=== PATIENT | female | born 1930 | race Native Hawaiian/Other Pacific Islander ===

== ENCOUNTER 2017-01-30 08:16 | Outpatient (CLI) | payer OTHER | END 2017-01-30 19:23 | disposition home or self-care (01) | LOC: LABW 08:16 | DX: R82.99 Other abnormal findings in urine (principal) | CPT/HCPCS: 87086; 87088 ==

== ENCOUNTER 2018-10-17 10:07 | Outpatient (CLI) | payer OTHER ==
[2018-10-17 10:48] LABS: PLATELET COUNT 120 K/uL (152-353)
== END 2018-10-17 22:09 | disposition home or self-care (01) ==
LOC: LABW 10:07
PROVIDERS: Specialist
DX: N18.3 Chronic kidney disease, stage 3 (moderate) (principal); M32.8 Other forms of systemic lupus erythematosus; I10 Essential (primary) hypertension
CPT/HCPCS: 36415; 80069; 81000; 85027

== ENCOUNTER 2018-11-07 08:47 | Outpatient (CLI) | payer OTHER | END 2018-11-07 22:48 | disposition home or self-care (01) | LOC: US 08:47 | DX: N18.3 Chronic kidney disease, stage 3 (moderate) (principal); I10 Essential (primary) hypertension ==

== ENCOUNTER 2019-01-09 09:52 | Outpatient (CLI) | payer OTHER | END 2019-01-09 19:45 | disposition home or self-care (01) | LOC: LABW 09:52 | DX: M05.79 Rheumatoid arthritis with rheumatoid factor of multiple sites without organ or systems involvement (principal); M32.8 Other forms of systemic lupus erythematosus; Z79.899 Other long term (current) drug therapy | CPT/HCPCS: 36415; 86480 ==

== ENCOUNTER 2019-03-07 14:50 | Inpatient (IN) | payer OTHER ==
[~2019-03-07] VITALS: Ht 157.5 cm; Wt 80.8 kg
[2019-03-07 18:00] VITALS: BP 138/47; TEMP 97.8
[2019-03-07] MEDS ORDERED: TYLENOL325 MG PO (18:06)
[2019-03-07] MEDS ORDERED: HYDROCODONE BIT1 TA1 PO (18:08)
[2019-03-07] MEDS ORDERED: REMERON SOLTAB15 MG PO (18:14)
[2019-03-07 18:15] VITALS: BP 138/47; TEMP 97.8; Ht 157.5 cm; Wt 80.8 kg
[2019-03-07] MEDS ORDERED: VENL37.511 PO (18:15)
[2019-03-07] MEDS ORDERED: CLARITIN10 MG PO (18:15)
[2019-03-07] MEDS ORDERED: CETI10TA PO (18:20)
[2019-03-07] MEDS ORDERED: HYDR25TA57 PO (18:23)
[2019-03-07] MEDS ORDERED: AMLODIPINE BESYLATE PO (18:28)
[2019-03-07] MEDS ORDERED: METO25TA2 PO (18:28)
[2019-03-07] MEDS ORDERED: KLOR-CON M2020 MEQ PO (18:31)
[2019-03-07] MEDS ORDERED: LEVO0.0723 PO (18:32)
[2019-03-07] MEDS ORDERED: CYCLOBENZAPRINE5 MG PO (18:32)
[2019-03-08 08:00] VITALS: BP 163/67; TEMP 97.8
[2019-03-08 20:00] VITALS: BP 195/82; TEMP 97.9
[2019-03-09 08:00] VITALS: BP 156/69; TEMP 97.8
[2019-03-09 20:00] VITALS: BP 136/52; TEMP 97.9
[2019-03-10 08:00] VITALS: BP 133/59; TEMP 97.9
[2019-03-10 20:00] VITALS: BP 146/71; TEMP 97.9
[2019-03-11 08:00] VITALS: BP 146/71; TEMP 97.9
[2019-03-11 20:00] VITALS: BP 137/69; TEMP 97.7
[2019-03-12 08:00] VITALS: BP 166/77; TEMP 98.1
[2019-03-12 20:00] VITALS: BP 174/72; TEMP 98.1
[2019-03-13 08:00] VITALS: BP 177/84; TEMP 98
[2019-03-13 20:00] VITALS: BP 139/67; TEMP 98.4
[2019-03-14 08:00] VITALS: BP 137/62; TEMP 98
[2019-03-14 20:00] VITALS: BP 155/59; TEMP 98.1
[2019-03-15 08:07] VITALS: BP 116/62; TEMP 98.2
[2019-03-15 20:00] VITALS: BP 154/56; TEMP 98.2
[2019-03-16 08:07] VITALS: BP 121/60; TEMP 98
[2019-03-16 20:00] VITALS: BP 146/66; TEMP 98.2
[2019-03-17 08:00] VITALS: BP 154/76; TEMP 97.9
[2019-03-17 20:00] VITALS: BP 155/68; TEMP 98.2
[2019-03-18 08:00] VITALS: BP 151/65; TEMP 98
[2019-03-18 20:00] VITALS: BP 141/65; TEMP 98.2
[2019-03-19 08:00] VITALS: BP 128/56; TEMP 98.2
[2019-03-19 20:00] VITALS: BP 136/60; TEMP 98.4
[2019-03-20 08:00] VITALS: BP 167/70; TEMP 97.9
[2019-03-20 20:00] VITALS: BP 159/70; TEMP 98.1
[2019-03-21 08:00] VITALS: BP 141/57; TEMP 98.1
[2019-03-21 20:05] VITALS: BP 144/62; TEMP 98.4
[2019-03-22 08:00] VITALS: BP 145/65; TEMP 98
[2019-03-22 20:00] VITALS: BP 160/69; TEMP 98.5
[2019-03-23 08:00] VITALS: BP 160/66; TEMP 97.9
[2019-03-23 20:00] VITALS: BP 150/63; TEMP 97.9
[2019-03-24 08:00] VITALS: BP 123/53; TEMP 98
[2019-03-24 20:00] VITALS: BP 137/55; TEMP 98.6
[2019-03-25 08:00] VITALS: BP 147/65; TEMP 97.9
[2019-03-25 20:00] VITALS: BP 154/73; TEMP 98.2
[2019-03-26 08:00] VITALS: BP 143/61; TEMP 97.9
== END 2019-03-26 13:52 | disposition home or self-care (01) | DRG 948 ==
LOC: MED/SURG 14:50
PROVIDERS: ADMIT Internal Medicine
DX: R53.1 Weakness (principal); S32.021D Stable burst fracture of second lumbar vertebra, subsequent encounter for fracture with routine healing; W19.XXXA Unspecified fall, initial encounter; Z91.81 History of falling; Y93.89 Activity, other specified; Y92.018 Other place in single-family (private) house as the place of occurrence of the external cause; F32.9 Major depressive disorder, single episode, unspecified; I10 Essential (primary) hypertension; L93.2 Other local lupus erythematosus; M06.80 Other specified rheumatoid arthritis, unspecified site; M48.00 Spinal stenosis, site unspecified; R26.81 Unsteadiness on feet
CPT/HCPCS: 94760

== ENCOUNTER 2019-10-26 17:42 | Outpatient (CLI) | payer OTHER ==
[~2019-10-26 17:42] MED LIST: AMLODIPINE BESYLATE PO; CETI10TA PO; CLARITIN10 MG PO; CYCLOBENZAPRINE5 MG PO; HYDR25TA57 PO; HYDROCODONE BIT1 TA1 PO; KLOR-CON M2020 MEQ PO; LEVO0.0723 PO; METO25TA2 PO; REMERON SOLTAB15 MG PO; TYLENOL325 MG PO; VENL37.511 PO
== END 2019-10-26 17:55 | disposition short-term general hospital (02) ==
LOC: AMB 17:42
DX: R55 Syncope and collapse (principal); R11.0 Nausea; S81.811A Laceration without foreign body, right lower leg, initial encounter; S00.81XA Abrasion of other part of head, initial encounter; W18.39XA Other fall on same level, initial encounter; Y92.89 Other specified places as the place of occurrence of the external cause
CPT/HCPCS: A0425; A0427

== ENCOUNTER 2019-10-26 17:58 | Emergency (ER) | payer OTHER ==
[~2019-10-26] VITALS: Ht 157.5 cm; Wt 80.7 kg
[2019-10-26 17:58] VITALS: TEMP 98.1
[2019-10-26 20:13] VITALS: BP 152/80
== END 2019-10-26 20:14 | disposition home or self-care (01) ==
LOC: ED 17:58
DX: S09.8XXA Other specified injuries of head, initial encounter (principal); W18.39XA Other fall on same level, initial encounter; Y92.098 Other place in other non-institutional residence as the place of occurrence of the external cause
CPT/HCPCS: 99283

== ENCOUNTER 2020-08-10 07:29 | Outpatient (CLI) | payer OTHER ==
[2020-08-10 08:49] LABS: POTASSIUM 4.6 mmol/L (3.6-5.2)
[2020-08-10 09:55] LABS: PLATELET COUNT 116 K/uL (152-353)
== END 2020-08-10 23:21 | disposition home or self-care (01) ==
LOC: LABW 07:29
PROVIDERS: Internal Medicine Nephrology
DX: I12.9 Hypertensive chronic kidney disease with stage 1 through stage 4 chronic kidney disease, or unspecified chronic kidney disease (principal); N18.30 Chronic kidney disease, stage 3 unspecified; N39.0 Urinary tract infection, site not specified; M81.0 Age-related osteoporosis without current pathological fracture; D64.89 Other specified anemias; E53.8 Deficiency of other specified B group vitamins
CPT/HCPCS: 36415; 80053; 81000; 82306; 82570; 83970; 84100; 84155; 84439; 84443; 85027